=== PATIENT | female | born 1960 | race Caucasian/White ===

== ENCOUNTER 2017-03-21 23:07 | Emergency (ER) | payer OTHER ==
[~2017-03-21] VITALS: Ht 157.5 cm; Wt 77.1 kg
[2017-03-21 23:20] VITALS: BP 152/78; PULSE 81; RESP 17; TEMP 98.1; O2SAT 98
--- NOTE | 2017-03-21 23:20 | NUR ---
Patient to ER bed 6 to gown for evaluation. Side rails up. Report given to EVELINA Zavaleta.
--- NOTE | 2017-03-21 23:40 | NUR ---
ER Dr. TYSON at bedside examining patient.
[2017-03-21] MEDS ORDERED: ONDANSETRON HCL 4 MG/2 ML VIAL IVP ONE (23:45)
[2017-03-21] MEDS ORDERED: NACL 0.9% 1,000 ML IV ONE (23:45)
[2017-03-22] MEDS ORDERED: PANTOPRAZOLE SODIUM 40 MG/VIAL (PROTONIX) IVP ONE
[2017-03-22] MEDS ORDERED: INSU100V11 SQ (00:01)
[2017-03-22] MEDS ORDERED: SSNOVOLOG SUBCUT (00:01)
[2017-03-22] MEDS ORDERED: ASPI-1063 PO (00:01)
[2017-03-22] MEDS ORDERED: OMEG1CAP10 PO (00:02)
[2017-03-22] MEDS ORDERED: CHOL100038 PO (00:02)
[2017-03-22] MEDS ORDERED: LUTE20TA PO (00:03)
[2017-03-22] MEDS ORDERED: FOLI-59 PO (00:03)
[2017-03-22] MEDS ORDERED: benadryl PO (00:04)
[2017-03-22 00:13] LABS: INR 0.9 (0.8-1.2); PROTHROMBIN TIME 10.2 SECS (9.5-12.5)
[2017-03-22 00:14] LABS: BASOPHILS % (AUTO) 0.2 % (0.0-2.0); EOSINOPHILS # (AUTO) 0.1 K/uL (0.0-0.4); EOSINOPHILS % (AUTO) 0.4 % (0.0-4.0); HEMATOCRIT 40.2 % (36-48); HEMOGLOBIN 13.5 g/dL (12.0-16.0); LYMPHOCYTES # (AUTO) 2.1 K/uL (1.0-5.5); LYMPHOCYTES % (AUTO) 16.7 % (20.5-51.5); MEAN CORPUSCULAR HEMOGLOBIN 30 pg (27-31); MEAN CORPUSCULAR HGB CONC 34 % (32-36); MEAN CORPUSCULAR VOLUME 88 fL (79.0-98.0); MONOCYTES # (AUTO) 0.5 K/uL (0.0-1.0); MONOCYTES % (AUTO) 4.3 % (1.7-9.3); NEUTROPHILS % (AUTO) 78.4 % (40.0-70.0); PLATELET COUNT (AUTO) 330 K/uL (130-430); RED BLOOD CELL COUNT(AUTO) 4.54 MIL/uL (4.2-6.2); RED CELL DISTRIBUTION WIDTH 12.6 % (9.0-15.0); WHITE BLOOD COUNT (AUTO) 12.7 K/uL (4.8-10.8)
[2017-03-22 00:15] LABS: CALCIUM 9.2 mg/dL (8.4-11.0); CREATININE 0.73 mg/dL (0.55-1.30); POTASSIUM 3.9 mmol/L (3.5-5.1)
[2017-03-22 00:19] LABS: ALBUMIN 3.9 g/dL (3.4-4.8); TOTAL BILIRUBIN 0.4 mg/dL (0.0-1.0); TOTAL PROTEIN, SERUM 7.6 g/dL (6.4-8.3)
--- NOTE | 2017-03-22 00:30 | NUR ---
PT C/O N/V SINCE YESTERDAY AFTER TAKING AN OVER THE COUNTER SUPPLEMENT. NO C/O PAIN, DIARRHEA, OR HEADACHE. STATES SHE HAS NOT BEEN ABLE TO KEEP ANY FOOD DOWN. A/OX4, AFEBRILE, SAFETY PRECAUTIONS IN PLACE, WILL CONTINUE TO MONITOR.
[2017-03-22] MEDS ORDERED: ONDANSETRON HCL 4 MG/2 ML VIAL IVP ONE (01:00)
[2017-03-22 02:02] VITALS: BP 153/77; PULSE 83; RESP 17; TEMP 98.1; O2SAT 98
--- NOTE | 2017-03-22 02:02 | NUR ---
Patient given written and verbal discharge instructions and verbalizes understanding. ER MD DR. TYSON discussed with patient the results and treatment provided. Patient in stable condition. ID arm band removed. IV catheter removed intact and dressing applied, no active bleeding. Rx of ZOFRAN given. Patient educated on pain management and to follow up with PMD. Pain Scale 0/10, PT STATES SHE FEELS MUCH BETTER, AMBULATED W/ STEADY GAIT. Opportunity for questions provided and answered.
== END 2017-03-22 02:02 | disposition home or self-care (01) ==
LOC: SED 23:07
DX: R11.10 Vomiting, unspecified (principal); R03.0 Elevated blood-pressure reading, without diagnosis of hypertension; R42 Dizziness and giddiness; E11.9 Type 2 diabetes mellitus without complications; Z79.4 Long term (current) use of insulin
CPT/HCPCS: 36415; 74020; 80053; 82962; 83690; 85025; 85610; 85730; 96374; 96375; 96376; 99285; C9113; J2405; J7030

== ENCOUNTER 2022-01-01 05:14 | Inpatient (IN) | payer OTHER, SELFPAY ==
[~2022-01-01] VITALS: Ht 157.5 cm; Wt 68.0 kg
[~2022-01-01 05:14] MED LIST: ASPI-1393 PO; CHOL100038 PO; FISH OIL 1,01 CAP.EC PO; FOLI-59 PO; INSU100V11 SQ; LUTE20TA PO; SSNOVOLOG SUBCUT; benadryl PO
[2022-01-01 05:23] VITALS: BP_SYST 181
[2022-01-01] MEDS ORDERED: PROCHLORPERAZINE EDISYLATE 10 MG/2 ML VIAL IVP ONE (06:00)
[2022-01-01] MEDS ORDERED: PANTOPRAZOLE SODIUM 40 MG/VIAL (PROTONIX) IVP ONE (06:00)
[2022-01-01] MEDS ORDERED: DIPHENHYDRAMINE INJ 50 MG/ML VIAL IVP ONE (06:00)
[2022-01-01] MEDS ORDERED: NACL 0.9% 1,000 ML IV ONE ×2 (06:00→08:30)
[2022-01-01] MEDS ORDERED: MECLIZINE HCL 25 MG TABLET (ANITVERT) PO ONE ×2 (06:15→06:45)
[2022-01-01 07:03] LABS: BASOPHILS % (AUTO) 0.3 % (0.0-2.0); EOSINOPHILS # (AUTO) 0.1 K/uL (0.0-0.4); EOSINOPHILS % (AUTO) 0.7 % (0.0-4.0); HEMATOCRIT 43.6 % (36-48); HEMOGLOBIN 14.6 g/dL (12.0-16.0); LYMPHOCYTES # (AUTO) 2.1 K/uL (1.0-5.5); LYMPHOCYTES % (AUTO) 20.3 % (20.5-51.5); MEAN CORPUSCULAR HEMOGLOBIN 31 pg (27-31); MEAN CORPUSCULAR HGB CONC 34 % (32-36); MEAN CORPUSCULAR VOLUME 91 fL (79.0-98.0); MONOCYTES # (AUTO) 0.4 K/uL (0.0-1.0); MONOCYTES % (AUTO) 4.1 % (1.7-9.3); NEUTROPHILS # (AUTO) 7.6 K/uL (1.8-7.7); NEUTROPHILS % (AUTO) 74.6 % (40.0-70.0); PLATELET COUNT (AUTO) 276 K/uL (130-430); RED BLOOD CELL COUNT(AUTO) 4.79 MIL/uL (4.2-6.2); RED CELL DISTRIBUTION WIDTH 12.9 % (9.0-15.0); WHITE BLOOD COUNT (AUTO) 10.2 K/uL (4.8-10.8)
[2022-01-01 07:20] LABS: BILIRUBIN,URINE NEGATIVE (NEGATIVE); COLOR,URINE YELLOW (YELLOW); GLUCOSE,URINE 3+ (NEGATIVE); KETONES,URINE 2+ (NEGATIVE); LEUKOCYTE ESTERASE ,URINE NEGATIVE (NEGATIVE); NITRITE, URINE POSITIVE (NEGATIVE); PH,URINE 5.5 (5.0-8.0); PROTEIN URINE 2+ (NEGATIVE); UROBILINOGEN,URINE 0.2 (0.2-1.0)
[2022-01-01 07:34] LABS: BLOOD, URINE TRACE (NEGATIVE); CLARITY/URINE HAZY (CLEAR)
[2022-01-01 07:35] LABS: BACTERIA,URINE MODERATE /HPF (None Seen)
[2022-01-01 07:36] LABS: MUCUS,URINE 1+ /LPF (None Seen)
[2022-01-01 07:42] LABS: ANION GAP 14 (5-15); CALCIUM 9.1 mg/dL (8.4-11.0); CHLORIDE 97 mmol/L (98-107); GFR AFRICAN AMERICAN 131 mL/min (>90); GLUCOSE 337 mg/dL (70-99); SODIUM SERUM 135 mmol/L (136-145); UREA NITROGEN, BLOOD 18 mg/dL (8-21)
[2022-01-01] MEDS ORDERED: INSULIN REGULAR, HUMAN 10 UNITS/0.1 ML INJ SUBCUT ONE (08:00)
[2022-01-01] MEDS ORDERED: cefTRIAXone 1 GM in D5W 50 ML IV ONE (08:15)
[2022-01-01] MEDS ORDERED: cefTRIAXone 1 GM VIAL ONE (08:22)
[2022-01-01 09:05] VITALS: BP_SYST 124
[2022-01-01 09:30] LABS: ALANINE AMINOTRANSFERASE 48 U/L (12-78); ALBUMIN 3.5 g/dL (3.4-4.8); ASPARTATE AMINOTRANSFERASE 27 U/L (10-37); TOTAL BILIRUBIN 0.6 mg/dL (0.0-1.0)
[2022-01-01 09:31] LABS: LIPASE 68 U/L (73-393)
[2022-01-01] MEDS ORDERED: LORazepam 2 MG/ML VIAL IVP PRN (09:45)
[2022-01-01] MEDS ORDERED: ACETAMINOPHEN 325 MG TABLET PO PRN (09:45)
[2022-01-01] MEDS ORDERED: ONDANSETRON HCL 4 MG/2 ML VIAL IVP PRN (09:45)
[2022-01-01] MEDS ORDERED: DEXTROSE 50% JECT 50 ML DISP.SYRIN IVP PRN (09:45)
[2022-01-01] MEDS ORDERED: GLUCOSE (DEXTROSE) ORAL GEL -Adults PO PRN (09:45)
[2022-01-01] MEDS ORDERED: NALOXONE HCL 0.4 MG/ML AMP (NARCAN) IVP PRN ×2 (09:45)
[2022-01-01] MEDS ORDERED: HYDROcodone/ACETAMIN 10-325 MG TAB PO PRN (09:45)
[2022-01-01] MEDS ORDERED: D5W 1,000 ML IV PRN (09:45)
[2022-01-01] MEDS ORDERED: HYDROcodone/ACETAMIN 5-325 MG TAB (NORCO/ VICODIN) PO PRN (09:45)
[2022-01-01] MEDS ORDERED: MULTIVITS,CA,MINERALS/IRON/FA 1 TABLET PO ONE (10:00)
[2022-01-01] MEDS ORDERED: OMEGA-3/DHA/EPA/FISH OIL 1 GM CAPSULE PO ONE (10:00)
[2022-01-01 10:48] LABS: CALCIUM 8.8 mg/dL (8.4-11.0); CREATININE 0.5 mg/dL (0.55-1.30); POTASSIUM 4.2 mmol/L (3.5-5.1)
[2022-01-01] MEDS: INSULIN REGULAR, HUMAN 100 UNITS/ML, 10 ML VIAL (humuLIN R) SUBCUT PRN ×3 (12:41→20:27)
[2022-01-01 19:00] VITALS: BP_SYST 123
[2022-01-01] MEDS: cephALEXin 250 MG CAPSULE PO SCH (19:18)
[2022-01-01 20:00] VITALS: BP_SYST 123
[2022-01-01] MEDS ORDERED: INSULIN GLARGINE 100 UNITS/ML 10 ML VIAL SQ SCH (21:00)
[2022-01-02 00:20] VITALS: BP_SYST 145
[2022-01-02] MEDS: cephALEXin 250 MG CAPSULE PO SCH ×3 (00:32→11:50)
[2022-01-02] MEDS: INSULIN REGULAR, HUMAN 100 UNITS/ML, 10 ML VIAL (humuLIN R) SUBCUT PRN ×2 (06:15→11:59)
[2022-01-02 06:51] LABS: BASOPHILS % (AUTO) 0.6 % (0.0-2.0); EOSINOPHILS # (AUTO) 0.1 K/uL (0.0-0.4); EOSINOPHILS % (AUTO) 1.6 % (0.0-4.0); HEMATOCRIT 39.6 % (36-48); HEMOGLOBIN 13.4 g/dL (12.0-16.0); LYMPHOCYTES # (AUTO) 2.3 K/uL (1.0-5.5); MEAN CORPUSCULAR HEMOGLOBIN 31 pg (27-31); MEAN CORPUSCULAR HGB CONC 34 % (32-36); MEAN CORPUSCULAR VOLUME 91 fL (79.0-98.0); MONOCYTES # (AUTO) 0.5 K/uL (0.0-1.0); MONOCYTES % (AUTO) 7.3 % (1.7-9.3); NEUTROPHILS # (AUTO) 3.5 K/uL (1.8-7.7); NEUTROPHILS % (AUTO) 54.5 % (40.0-70.0); PLATELET COUNT (AUTO) 250 K/uL (130-430); RED BLOOD CELL COUNT(AUTO) 4.37 MIL/uL (4.2-6.2); RED CELL DISTRIBUTION WIDTH 13.2 % (9.0-15.0); WHITE BLOOD COUNT (AUTO) 6.4 K/uL (4.8-10.8)
[2022-01-02 07:45] VITALS: BP_SYST 135
[2022-01-02 08:29] LABS: CALCIUM 9.1 mg/dL (8.4-11.0); CREATININE 0.47 mg/dL (0.55-1.30); PHOSPHORUS 3.3 mg/dL (2.7-4.5); POTASSIUM 3.9 mmol/L (3.5-5.1)
[2022-01-02] MEDS ORDERED: ASPIRIN 81 MG TABLET(ECOTRIN) PO SCH (09:00)
[2022-01-02] MEDS ORDERED: OMEGA-3/DHA/EPA/FISH OIL 1 GM CAPSULE PO SCH (09:00)
[2022-01-02] MEDS ORDERED: MULTIVITS,CA,MINERALS/IRON/FA 1 TABLET PO SCH (09:00)
[2022-01-02] MEDS ORDERED: CHOLECALCIFEROL (VITAMIN D3) 2,000 UNIT TABLET PO SCH (09:00)
[2022-01-02] MEDS ORDERED: cefTRIAXone 1 GM IVPB PREMIX 50 ML IV SCH (11:00)
[2022-01-02] MEDS ORDERED: CEPH250C PO (11:02)
[2022-01-02] MEDS ORDERED: MECL-225 PO (11:02)
[2022-01-02] MEDS ORDERED: GLIP5TAB13 PO (11:02)
[2022-01-02 12:26] VITALS: BP_SYST 164
[2022-01-02 14:27] VITALS: BP_SYST 137
== END 2022-01-02 15:13 | disposition home or self-care (01) | DRG 149 ==
LOC: SED 05:14 → SMU 08:02
PROVIDERS: ADMIT Preventive Medicine Preventive Medicine/Occupational Environmental Medicine; ATTEND Preventive Medicine Preventive Medicine/Occupational Environmental Medicine
DX: R42 Dizziness and giddiness (principal); E87.1 Hypo-osmolality and hyponatremia; E11.65 Type 2 diabetes mellitus with hyperglycemia; E78.5 Hyperlipidemia, unspecified; Z20.822 Contact with and (suspected) exposure to COVID-19; Z90.49 Acquired absence of other specified parts of digestive tract; Z79.82 Long term (current) use of aspirin; Z79.4 Long term (current) use of insulin; Z88.8 Allergy status to other drugs, medicaments and biological substances; Z79.899 Other long term (current) drug therapy
CPT/HCPCS: 36415; 70450-TC; 71045; 76376; 80048; 80053; 81000; 82306; 82962; 83605; 83690; 83735; 84100; 84484; 85025; 87040; 87081; 87086; 93880; 96374; 96375; 97110-GP; 97116-GP; 97530-GP; 99285; C9113; J0696; J0780; J1200; J1815; J8597